=== PATIENT | female | born 1970 | race Caucasian/White ===

== ENCOUNTER 2017-08-24 09:15 | Outpatient (CLI) | payer OTHER | END 2017-08-24 09:26 | disposition home or self-care (01) | LOC: SONOGRAMA 09:15 | DX: E06.1 Subacute thyroiditis (principal) ==

== ENCOUNTER 2021-06-27 09:59 | Outpatient (CLI) | payer OTHER | END 2021-06-27 10:01 | disposition home or self-care (01) | LOC: SONOGRAMA 09:59 | PROVIDERS: ATTEND Pathology Anatomic Pathology & Clinical Pathology | DX: E04.2 Nontoxic multinodular goiter (principal) ==

== ENCOUNTER 2022-01-17 06:40 | Day surgery (SDC) | payer OTHER ==
[~2022-01-17] VITALS: Ht 162.6 cm; Wt 59.0 kg
[~2022-01-17 06:40] MED LIST: SYNTHROID125 MCG
== END 2022-01-17 19:40 | disposition home or self-care (01) ==
LOC: CIR.AMB 06:40
PROVIDERS: ATTEND Surgery
DX: D05.01 Lobular carcinoma in situ of right breast (principal); R59.0 Localized enlarged lymph nodes; Z20.822 Contact with and (suspected) exposure to COVID-19; E03.9 Hypothyroidism, unspecified
CPT/HCPCS: 19303; 19340; 19380; 38525; 78195; L8699; A9541